=== PATIENT | female | born 1970 | race Caucasian/White ===

== ENCOUNTER 2016-04-28 14:07 | Inpatient (IN) ==
--- NOTE | 2016-04-28 18:20 | Emergency Department Note ---
Disposition Clinical Impression: Vertebral compression fracture Disposition: Admitted As Inpatient Condition: Fair General Adult HPI - General Chief complaint: ED Back Pain/Injury Stated complaint: Fall - Back Pain Time Seen by Provider: 04/28/16 18:11 Source: patient Limitations: no limitations - History of Present Illness Pain Scale: 8 - Related Data Home Medications Medication Instructions Recorded Confirmed Amlodipine [Norvasc] 5 mg PO DAILY 04/29/16 04/29/16 Atenolol [Tenormin] 50 mg PO BID 04/29/16 04/29/16 Cyclobenzaprine [Flexeril] 10 mg PO TID 04/29/16 04/29/16 Gabapentin [Gabapentin] 900 mg PO QID 04/29/16 04/29/16 Ibuprofen [Ibuprofen] 800 mg PO TID 04/29/16 04/29/16 Methadone 25 mg PO TID 04/29/16 04/29/16 Oxycodone HCl 10 mg PO HS 04/29/16 04/29/16 Temazepam [Restoril] 30 mg PO HS 04/29/16 04/29/16 Allergies Allergy/AdvReac Type Severity Reaction Status Date / Time azithromycin Allergy Hives Verified 04/28/16 19:05 celecoxib [From Celebrex] Allergy Hypertensio Verified 04/28/16 19:05 n Past Medical History - Past Medical History Medical history: Reports: hypertension, other Psychiatric history: Reports: no psych history - Social History Smoking Status: Current every day smoker Smokeless Tobacco Status: No Alcohol use: Reports: none Drug use: Reports: none Physical Exam - General Limitations: no limitations General appearance: alert Course Vital Signs Temperature 98.5 F 04/28/16 15:05 Pulse Rate 92 04/28/16 15:05 Respiratory Rate 18 04/28/16 15:05 Blood Pressure 128/85 04/28/16 15:05 O2 Sat by Pulse Oximetry 88 L 04/28/16 15:05 Temperature 97.5 F L 05/02/16 10:53 Pulse Rate 75 05/02/16 10:53 Respiratory Rate 14 05/02/16 10:53 Blood Pressure 124/75 05/02/16 10:53 O2 Sat by Pulse Oximetry 94 L 05/02/16 10:53 Oxygen Delivery Oxygen Delivery Nasal Cannula Medical Decision Making - Lab Data Result diagrams: 05/02/16 05:20 05/02/16 05:20 Lab Results 04/29/16 04/29/16 04/29/16 Range/Units 00:46 01:19 01:19 WBC 6.0 (4.3-11.1) K/mcL RBC 3.01 L (3.82-4.97) M/mcL Hgb 10.0 L (11.5-15.4) g/dL Hct 30.7 L (35.3-44.9) % MCV 102.0 H (83.0-100.0) fL MCH 33.2 (28.0-33.3) pg MCHC 32.6 (31.6-35.5) g/dL RDW 14.0 (11.5-14.5) % Plt Count 192 (140-400) K/mcL MPV 9.9 (9.4-12.4) fL Immature Gran % 0.5 (0-4) % Seg Neutrophils % 79.6 % Lymphocytes % 13.5 % Monocytes % 4.2 % Eosinophils % 2.0 % Basophils % 0.2 % Neutrophils # 4.8 (1.6-8.9) K/mcL Lymphocytes # 0.8 (0.6-4.6) K/mcL Monocytes # 0.3 (0.0-1.3) K/mcL Eosinophils # 0.1 (0.0-0.6) K/mcL Basophils # 0.0 (0.0-0.2) K/mcL Immature Plt Fraction 3.1 (1.1-6.1) % ABG pH 7.36 (7.32-7.45) pH Units ABG pCO2 67 H (35-45) mmHg ABG pO2 103 (85-104) mmHg ABG HCO3 37.9 H (21-27) mEQ/L ABG Total CO2 40.0 H (20-26) mEq/L ABG O2 Saturation 98 (95-98) % ABG Base Excess 10.5 H (-2.0 to 3.0) mEq/L Blood Gas Modality nc Inspired O2 44 % Sodium 143 (136-145) mEq/L Potassium 2.4 L* (3.5-4.5) mEq/L Chloride 101 (98-109) mEq/L Carbon Dioxide 29 (19-29) mEq/L BUN 11 (7-20) mg/dL Creatinine 0.85 (0.57-1.11) mg/dL Est GFR ( Amer) > 60 (> 60) Est GFR (Non-Af Amer) > 60 (> 60) BUN/Creatinine Ratio 13 (6-26) Glucose 125 H (70-99) mg/dL Calculated Osmolality 297 (280-300) Calcium 8.5 L (8.6-10.8) mg/dL Ionized Calcium (1.15-1.35) mmol/L Phosphorus (2.3-4.7) mg/dL Magnesium (1.6-2.6) mg/dL Total Bilirubin 0.4 (0.2-1.2) mg/dL AST 26 (5-34) Units/L ALT 15 (0-55) Units/L Alkaline Phosphatase 121 (38-126) Units/L Serum Total Protein 6.8 (6.0-8.3) g/dL Albumin 2.6 L (3.5-5.0) g/dL Globulin 4.2 H (2.4-3.5) g/dL Albumin/Globulin Ratio 0.6 L (1.1-2.2) 25-OH Vitamin D Total (30-80) ng/mL TSH (0.350-4.840) mcIU/mL 04/29/16 04/29/16 04/29/16 Range/Units 01:19 01:19 01:19 WBC (4.3-11.1) K/mcL RBC (3.82-4.97) M/mcL Hgb (11.5-15.4) g/dL Hct (35.3-44.9) % MCV (83.0-100.0) fL MCH (28.0-33.3) pg MCHC (31.6-35.5) g/dL RDW (11.5-14.5) % Plt Count (140-400) K/mcL MPV (9.4-12.4) fL Immature Gran % (0-4) % Seg Neutrophils % % Lymphocytes % % Monocytes % % Eosinophils % % Basophils % % Neutrophils # (1.6-8.9) K/mcL Lymphocytes # (0.6-4.6) K/mcL Monocytes # (0.0-1.3) K/mcL Eosinophils # (0.0-0.6) K/mcL Basophils # (0.0-0.2) K/mcL Immature Plt Fraction (1.1-6.1) % ABG pH (7.32-7.45) pH Units ABG pCO2 (35-45) mmHg ABG pO2 (85-104) mmHg ABG HCO3 (21-27) mEQ/L ABG Total CO2 (20-26) mEq/L ABG O2 Saturation (95-98) % ABG Base Excess (-2.0 to 3.0) mEq/L Blood Gas Modality Inspired O2 % Sodium (136-145) mEq/L Potassium (3.5-4.5) mEq/L Chloride (98-109) mEq/L Carbon Dioxide (19-29) mEq/L BUN (7-20) mg/dL Creatinine (0.57-1.11) mg/dL Est GFR ( Amer) (> 60) Est GFR (Non-Af Amer) (> 60) BUN/Creatinine Ratio (6-26) Glucose (70-99) mg/dL Calculated Osmolality (280-300) Calcium 8.7 (8.6-10.8) mg/dL Ionized Calcium 1.12 L (1.15-1.35) mmol/L Phosphorus 3.6 (2.3-4.7) mg/dL Magnesium 2.0 (1.6-2.6) mg/dL Total Bilirubin (0.2-1.2) mg/dL AST (5-34) Units/L ALT (0-55) Units/L Alkaline Phosphatase (38-126) Units/L Serum Total Protein (6.0-8.3) g/dL Albumin (3.5-5.0) g/dL Globulin (2.4-3.5) g/dL Albumin/Globulin Ratio (1.1-2.2) 25-OH Vitamin D Total 8 L (30-80) ng/mL TSH 2.146 (0.350-4.840) mcIU/mL Attestation Statement - Attestation Attestation: I examined this patient and my medical decision-making was reviewed with the PROCESS PUMPER/PA/Advanced Practice Nurse/Resident Physician. I agree with the documented findings, disposition and treatment plan as described except to the extent set forth below. [id number] time provided Patient sustained a fall. She complains of lower back pain. She states she has a history of chronic back pain and previously a kyphoplasty was advised by her insurance denied this. The patient has an obvious kyphotic posture on exam
[2016-04-28] MEDS ORDERED: *HR* HYDROmorphone (PF) 1 MG/ML SYRINGE IV ONE (18:28)
[2016-04-28] MEDS ORDERED: Ondansetron 4 MG/2 ML VIAL IVP ONE (18:29)
--- NOTE | 2016-04-28 18:34 | Emergency Department Note ---
Disposition Clinical Impression: Vertebral compression fracture Qualifiers: Encounter type: initial encounter Qualified Code(s): M48.50XA - Collapsed vertebra, not elsewhere classified, site unspecified, initial encounter for fracture Disposition: Admitted As Inpatient Condition: Fair General Adult HPI - General Chief complaint: ED Back Pain/Injury Stated complaint: Fall - Back Pain Time Seen by Provider: 04/28/16 18:11 Source: patient Limitations: no limitations Nursing Notes Reviewed: Yes Vital Signs Reviewed: Yes - History of Present Illness HPI Narrative: Patient is here for evaluation of back pain. Patient had a fall approximately 1 month ago and was diagnosed with a compression fracture in thoracic spine. Her primary care physician has been taking care of her and have recommended kyphoplasty which insurance did not approve. Since this time the patient has had multiple other falls the most recent of which she says was 2 days ago but cannot remember the details. Patient has had a history of back pain in the corresponding thoracic region that radiates around to the front and down into the lumbar spine with radiation or radicular symptoms along the right leg into the knee. The patient states that yesterday she was trying to use a restroom was unable to urinate. Patient has had urinary incontinence 2 over the last day. Patient has had fecal incontinence but states that this is normal for her secondary to her heart Hirschsprung's disease. Pain Scale: 8 - Related Data Home Medications Medication Instructions Recorded Confirmed Unable To Obtain [Unable to Obtain] 04/28/16 04/28/16 Allergies Allergy/AdvReac Type Severity Reaction Status Date / Time azithromycin Allergy Hives Verified 04/28/16 19:05 celecoxib [From Celebrex] Allergy Hypertensio Verified 04/28/16 19:05 n All systems ED: reviewed and negative except as stated. Constitutional: Denies: fever, chills Cardiovascular: Denies: chest pain Respiratory: Denies: cough, dyspnea Gastrointestinal: Denies: abdominal pain, nausea, vomiting Genitourinary: Reports: other (inability to void x2 - intermittent) Past Medical History - Past Medical History Medical history: Reports: hypertension, other Psychiatric history: Reports: no psych history - Social History Smoking Status: Current every day smoker Smokeless Tobacco Status: No Alcohol use: Reports: none Drug use: Reports: none Physical Exam Back pain with tenderness to thoracic tenderness in the corresponding region of previous compression fracture. Tendernes to the lower back throughout. Not worse midline or paraspinal. - General Limitations: no limitations General appearance: alert - Head Head exam: atraumatic, normocephalic - Eye Eye exam: Present: normal appearance - ENT ENT exam: normal exam, normal oropharynx - Neck Neck exam: Present: normal inspection - Chest Chest inspection: Present: normal inspection, symmetric chest wall rise. Absent : tenderness - Respiratory Respiratory exam: Present: normal lung sounds bilaterally. Absent: respiratory distress, wheezes - Cardiovascular Cardiovascular exam: Present: regular rate, normal rhythm - Abdominal Exam Abdominal exam: Present: soft, Non-Tender - Extremities Exam Extremities exam: Present: normal inspection. Absent: tenderness, pedal edema - Neurological Exam Neurological exam: Present: alert, oriented X3 - Expanded Neurological Exam Patient oriented to: Present: person, place, time Speech: Present: fluid speech Cranial nerves: EOM function (II, III, IV, ): Normal, facial sensation (V): Normal, facial palsy (VII): Normal, gag reflex (IX): Normal, spinal accessory function (XI): Normal, tongue deviation (XII): Normal Cerebellar function: finger to nose: Normal Motor strength - LUE: 5/5 Motor strength - RUE: 5/5 Motor strength - LLE: 5/5 Motor strength - RLE: 5/5 Sensory exam upper extremity: light touch: Normal Sensory exam lower extremity: light touch: Normal Coma Scale Eye Opening: Spontaneous Coma Scale Motor Response: Obeys Commands Coma Scale Verbal Response: Oriented Coma Scale Total: 15 - Psychiatric Psychiatric exam: Present: normal affect, normal mood - Skin Skin exam: Present: warm, dry, intact Course Course Narrative: Patient has history of fall 2-3 weeks ago with worsening balance and 2 episodes of being unable to urinate with some urinary leakage sometime later. Patient currently able to urinate without difficulty. However, due to the concerning nature of the history we will get an MRI of the thoracic and lumbar spine. - Reevaluation(s) Reevaluation #1: Patient complaining of significant pain and requesting pain medication. Patient states she takes methadone by her primary care physician for chronic back pain does not seem to back pain specialist. Patient also has significant anxiety and is requesting for anxiolysis in order to get the MRI. Reevaluation #2: Patient tolerated MRI well but is difficult to arouse. Patient with good respiratory effort however upon trying to discharge she is not arousing well enough to give instructions. 0.2 mg of Narcan given. Reevaluation #3: Radiologist called for an addendum to previous radiographic read. Patient has multiple levels of fractures including the thoracic lumbar and sacral regions. Patient will be admitted for further evaluation and possible neuro surgery consult. - Consultations Consultation #1: Discussed with Dr. Henderson. Patient accepted for admission. Vital Signs Temperature 98.5 F 04/28/16 15:05 Pulse Rate 92 04/28/16 15:05 Respiratory Rate 18 04/28/16 15:05 Blood Pressure 128/85 04/28/16 15:05 O2 Sat by Pulse Oximetry 88 L 04/28/16 15:05 Temperature 98.8 F 04/29/16 00:05 Pulse Rate 66 04/29/16 00:05 Respiratory Rate 15 04/29/16 00:05 Blood Pressure 93/54 04/29/16 00:05 O2 Sat by Pulse Oximetry 97 04/29/16 00:05 Oxygen Delivery Oxygen Delivery Nasal Cannula
[2016-04-28] MEDS ORDERED: *HR* LORazepam 2 MG/ML VIAL IVP ONE (19:45)
[2016-04-28] MEDS ORDERED: *HR* LORazepam 2 MG/ML VIAL ONE (19:46)
[2016-04-28] MEDS ORDERED: Naloxone 0.4 MG/ML INJ IVP ONE (22:32)
[2016-04-29] MEDS ORDERED: Dexamethasone 4 MG/ML VIAL IVP ONE (00:01)
[2016-04-29] MEDS ORDERED: Ipratropium/Albuterol Neb 3 ML IH PRN (00:01)
--- NOTE | 2016-04-29 00:15 | Internal Med History&Physical ---
Date of Encounter: 04/29/16 Time of Encounter: 00:12 Assessment and Plan (1) Vertebral compression fracture Current visit: Yes Status: Acute Patient presented with back pain and reports of incontinence. Thoracic MRI showed 1) acute-subactue T5 & T7 vertebral body compression fractures with mild anterior vertebral body height loss, 2) inferior T4 &T6 and superior T8 endplate contusions, 3) no hematoma or evidence of spinal cord injury. Lumbar MRI showed 1) subacute L1 compression fracture with mild anterior vertebral body height loss, 2) L2 superior enplate contusion, 3) mild L4-5 DDD with disc buldging causeing mild spinal stenosis, 4) abnormal T1 & T2 and left & right sacral ala changes concerning for acute insufficiency fractures. 1. MRI cervical spine - with all of the other spinal changes and falls, believe MRI cervical spine would be indicated 2. Consult to Dr. Meza, spine surgery, for evaluation 3. Evaluation for underlying cause of fractures - will order Ca, Mg, Phos, Thyroid cascade and 25 D Hydroxy 4. Decadron 10mg IV due to concern for incontinence 5. Pain control - will hold at this time due to patient's decreased responsiveness 6. PT/OT consult Qualifiers: Encounter type: initial encounter Qualified Code(s): M48.50XA - Collapsed vertebra, not elsewhere classified, site unspecified, initial encounter for fracture (2) Multiple falls Current visit: Yes Status: Acute Patient reports multiple falls. Unable to evaluate situation surrounding these falls as patient is unable to answer questions at this time. Will have to evaluate for causes of falls. Will also consult PT/OT 1. Further discussion into causes of falls 2. PT/OT consult (3) Increased oxygen demand Current visit: Yes Status: Acute Patient requiring supplemental oxygen here in the hospital. She reports that she does not require oxygen at home. She smokes but states that she has never been told she has COPD before. On exam, patient has diminished breath sounds and fine wheezing on the left. Will get a CXR and because of the wheezing will order duonebs. Due to patient's decreased responsiveness, will get an ABG as well. Patient may require BiPAP if she is retaining CO2. 1. CXR 2. ABG 3. Continuous O2 monitoring and supplemental O2 as needed 4. Duoneb breathing treatments (4) Decreased responsiveness Current visit: Yes Status: Acute Patient with decreased responsiveness after recieving 1mg dilaudid and 1mg ativan. Improved somewhat after recieving narcan. On exam, patient is arousable and is protecting her airway. This decreased responsiveness is due in part to medication however with recent falls we will do a head CT to rule out any bleed and get an ABG to assess oxygenation. Will monitor neuro status. 1. Monitor neuro status 2. Head CT 3. ABG 4. Cardiac monitoring (5) Hirschsprung's disease Current visit: Yes Status: Acute (6) DVT prophylaxis Current visit: Yes Status: Acute Heparin for DVT prophylaxis. Internal Medicine - H&P: HPI Chief complaint: Back Pain Admitted From: Emergency Dept History of present illness: Ms. Toth is a 45 year old female with PMH including hypertension, Hirshsprung' s Disease, and current tobacco use who presented to the ED with back pain. At the time of this exam, patient is extremely groggy. She was arrousable and is protecting her airway however is unable to answer many questions and frequently states "I don't know." Majority of history and review of symptoms obtained from ED note and ED physicians. Patient presents to the ED with complaint of thoracic back pain. Per ED note, patient feel approximately 1 month ago. At that time she was diagnosed with a T7 compression fracture. Kyphoplasty was recommended but denied by insurance. She was being managed by a primary care provider. She reports to talking Methadone daily for her pain. Per ED note, the thoracic pain radiates around to the front and down the lumbar spin into her right knee. Patient reported increased difficulty ambulating with worsening stability Patient reported associated urine loss x2 over the last 2 days - patient tried to go to the bathroom and was unable to go. She then had small leakage of urine and then was able to go back and go to the bathroom. She has also had fecal incontinence but this is normal for her secondary to Hirschsprung's disease. In the ED, patient was afebrile. Blood pressure, heart rate and respiratory rate all within normal limits. O2 saturation on admission was 88% and she is currently requiring around 6L supplemental oxygen to maintain her O2 sat. Patient was given dilaudid and ativan due to anxiety and pain. MRI thoracic and lumbar spines were done because of the concern for urinary incontinence and the falls. This showed multiple contusions, compression fractures and changes concerning for acute insufficiency fractures. On return from CT, patient was unarrousable and nonresponsive. She was then given 0.4mg of Narcan with improvement. On exam, patient was difficulty to awake. She would eventually open her eyes and she was moving all extremities. She attempted to stay awake while I asked the patient questions however she kept falling asleep and was unable to answer many questions. She reported her only hisotry of Hirshsprungs. She denied any history of COPD or CHF. Initially she did not know why she came to the ED. When asked if it was for back pain she said yes. She says she urinated as normal today. Lungs were diminished bilaterally with fine wheezing on the left. Patient is able to state that she does not use oxygen at home. Heart regular rate and rhythm. She is moving all extremities on her own. She reports that sensation is grossly intact. Physical exam limited due to patients willingness to cooperate. Past Med Surg Social Fam HX - Past Medical History Medical history: hypertension, other Psychiatric history: no psych history - Social History Smoking Status: Current every day smoker Smokeless Tobacco Status: No Alcohol use: none Drug use: none Internal Medicine - H&P: Meds Unable To Obtain [Unable to Obtain] 04/28/16 [History] Allergies azithromycin Allergy (Verified 04/28/16 19:05) Hives celecoxib [From Celebrex] Allergy (Verified 04/28/16 19:05) Hypertension ROS unobtainable: due to mental status All Systems PM: A 10-system review of systems was performed and is negative for pertinent findings except as documented above in the HPI. - Constitutional Constitutional: falls - Genitourinary Genitourinary: difficulty urinating, difficulty voiding, urinary hesitancy, urinary incontinence - Musculoskeletal Musculoskeletal ROS IM: back pain - Constitutional Vitals: Temp Pulse Resp BP Pulse Ox 98.8 F 66 15 93/54 97 04/29/16 00:05 04/29/16 00:05 04/29/16 00:05 04/29/16 00:05 04/29/16 00:05 General appearance: Present: A&O X 2, no acute distress - Head Head exam: Present: atraumatic, normal inspection, normocephalic - Eye Eye exam: Present: normal appearance - Respiratory Respiratory exam: Present: decreased breath sounds, wheezes. Absent: rales, respiratory distress, rhonchi - Cardiovascular Cardiovascular exam: Present: RRR - GI/Abdominal GI/Abdominal exam: Present: soft. Absent: tenderness - Extremities Exam Extremities exam: Present: normal inspection. Absent: pedal edema - Expanded Neurological Exam Neurological exam expanded: Present: protecting the airway Patient oriented to: Present: person, place Speech: Present: fluid speech Sensory exam: lower extremity light touch: Normal, upper extremity light touch: Normal Coma Scale Eye Opening: To Voice Coma Scale Motor Response: Obeys Commands Coma Scale Verbal Response: Oriented Coma Scale Total: 14
[2016-04-29] MEDS: 0.9 % Sodium Chloride 1,000 ML IVC SCH (00:37)
[2016-04-29 00:57] LABS: ABG Base Excess 10.5 mEq/L (-2.0 to 3.0); ABG HCO3 37.9 mEQ/L (21-27); ABG Oxygen Saturation 98 % (95-98); ABG PCO2 67 mmHg (35-45); ABG PH 7.36 pH Units (7.32-7.45); ABG PO2 103 mmHg (85-104)
[2016-04-29 00:58] LABS: Blood Gas FiO2 44 %
[2016-04-29 01:39] LABS: Basophils % 0.2 %; Eosinophils # 0.1 K/mcL (0.0-0.6); Hematocrit 30.7 % (35.3-44.9); Immature Granulocytes % 0.5 % (0-4); Immature Platelets 3.1 % (1.1-6.1); Lymphocytes # 0.8 K/mcL (0.6-4.6); Lymphocytes % 13.5 %; Mean Corpuscular HGB Conc 32.6 g/dL (31.6-35.5); Mean Corpuscular Hemoglobin 33.2 pg (28.0-33.3); Mean Platelet Volume 9.9 fL (9.4-12.4); Monocytes # 0.3 K/mcL (0.0-1.3); Monocytes % 4.2 %; Neutrophils # 4.8 K/mcL (1.6-8.9); Platelet Count 192 K/mcL (140-400); Red Blood Count 3.01 M/mcL (3.82-4.97); Segmented Neutrophils % 79.6 %
[2016-04-29] MEDS ORDERED: 0.9 % Sodium Chloride 1,000 ML IVC ONE ×2 (01:44→03:00)
[2016-04-29 01:46] LABS: Ionized Calcium 1.12 mmol/L (1.15-1.35)
[2016-04-29 01:51] LABS: Calcium 8.7 mg/dL (8.6-10.8); Phosphorous 3.6 mg/dL (2.3-4.7)
[2016-04-29 01:53] LABS: Alanine Aminotransferase 15 Units/L (0-55); Albumin 2.6 g/dL (3.5-5.0); Albumin/Globulin Ratio 0.6 (1.1-2.2); Alkaline Phosphatase 121 Units/L (38-126); Aspartate Amino Transferase 26 Units/L (5-34); BUN/Creatinine Ratio 13 (6-26); Bilirubin,Total 0.4 mg/dL (0.2-1.2); Blood Urea Nitrogen 11 mg/dL (7-20); Calcium 8.5 mg/dL (8.6-10.8); Carbon Dioxide 29 mEq/L (19-29); Chloride 101 mEq/L (98-109); Globulin 4.2 g/dL (2.4-3.5); Glucose 125 mg/dL (70-99); Osmolality,Calculated 297 (280-300); Sodium 143 mEq/L (136-145); Total Protein 6.8 g/dL (6.0-8.3); eGFR For African Americans > 60 (> 60); eGFR For Non-African Americans > 60 (> 60)
[2016-04-29 01:57] LABS: Potassium 2.4 mEq/L (3.5-4.5)
--- NOTE | 2016-04-29 03:23 | Event Note ---
Date of Encounter: 04/29/16 Time of Encounter: 03:17 Patients seen and examined with the medical residents. Briefly patient presents with back pain. She has been having recurrent falls over the past 3 weeks. Suspect that the patient is falling due to excessive pain/sedating medications. Patient takes two and a half pills of methadone 3 times a day, in addition to oxycodone 10 mg daily in addition to Flexeril. Patient the sleepy during my interview. Patient mentioned recent symptoms of urinary incontinence and therefore MRI of the thoracic and lumbar spine was performed in the emergency room and showed no evidence of cord pathology. A blood gas showed elevation of CO2 however is compensated. Will get CT scan of the head, MRI of the cervical spine. Patient was found to have left sided pneumonia and so she will be started on Levaquin 750 mg daily. When old pain medications for now. Neurosurgery consultation in the morning. She is hypokalemia can this will be replaced traditional medicines for hypertension and I suspect she may be diuretic.
[2016-04-29] MEDS: *HR* Heparin 5,000 UNIT/ML VIAL SQ SCH ×3 (06:37→22:03)
[2016-04-29] MEDS: Famotidine 20 MG/2 ML VIAL IVP SCH ×2 (06:40→17:08)
--- NOTE | 2016-04-29 09:15 | Internal Med Progress Note ---
<Sol Infantemadeleine - Last Filed: 04/29/16 15:42> Date of Encounter: 04/29/16 Time of Encounter: 09:04 - Assessment and plan (1) Vertebral compression fracture Current Visit: Yes Status: Acute Assessment and plan: Patient presenting with worsening back pain. Known fall 3 weeks ago and dx of T7 compression Fracture. Patient does not remember if she fell again at home or had any traumatic injury. 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 Denies saddle anesthesia. On exam muscle strength decreased b/l hip abduction possibly secondary to pain vs spinal canal narrowing. Reflexes 2-3/4 right Achilles, 2/4 L achilles and bilateral patellar. Sensation intact b/l upper and lower extremity. MRI today T/L spine showing acute vs subacute t5 and t7 compression fracture, contusions to T4,T6,T8 , L2, subacute L1 compression fx, and degenerative changes lumbar spine L4-5 with disc bulge and mild canal narrowing. Plan: -Dr. Sher consulted, appreciate further recommendations -Will check for secondary causes of osteoporosis (Ca, Mg, Phosphate, TSH, VitD, PTH) -PT/OT consulted -Resumed patient's home dose of oxycodone PRN, with Morphine IV for severe pain. -Will check labs tomorrow for secdonary causes of fracture: phosphorous, PTH, -Patient found to have severely low levels of Vitamin D. -Continue with supplemental calcium carbonate and Vitamin D. 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 -Will review OARRS -C spine MRI pending. -COnsult to PT/OT. Qualifiers: Encounter type: initial encounter Qualified Code(s): M48.50XA - Collapsed vertebra, not elsewhere classified, site unspecified, initial encounter for fracture (2) Hypokalemia Current Visit: Yes Status: Acute Assessment and plan: potassium upon admission was 2.4 Have replaced, will re check tomorrow along with magnesium levels. (3) Pneumonia Current Visit: Yes Status: Acute Assessment and plan: CXR showed increased opacities in the central left lung. Continue Levaquin, Day 1. DuoNeb PRN Qualifiers: Pneumonia type: due to unspecified organism Laterality: unspecified laterality Lung location: unspecified part of lung Qualified Code(s): J18.9 - Pneumonia, unspecified organism (4) Hypertension Current Visit: Yes Status: Acute Assessment and plan: Holding blood pressure meds at this time due to hypotension. Will possibly resume tomorrow after re evaluation. Qualifiers: Hypertension type: essential hypertension Qualified Code(s): I10 - Essential (primary) hypertension (5) Multiple falls Current Visit: Yes Status: Acute Assessment and plan: Patient states that she feels safe at home. She denies any sort of abusive relationship with her . Etiology unclear at this time. PT/OT (6) Decreased responsiveness Current Visit: Yes Status: Acute Assessment and plan: Upon admission, patient was hard to arouse after receiving ativan and dilaudid. SHe received Narcan with minimal improvement. Head CT showed no acute intracranial abnormality. ABG showed normal pH, elevated CO2. Today, patient is alert and oriented x3, mentating normally. COntinue to monitor. Resumed home dose of oxycodone PRN with IV morphine Q6 for severe pain. (7) Hirschsprung's disease Current Visit: Yes Status: Acute (8) DVT prophylaxis Current Visit: Yes Status: Acute Assessment and plan: Heparin SQ - Subjective Interval history: 45 year-old female examined at bedside. Reports she is having a significant amount of back pain and back spasms (Thoracic and Lumbar). She has had chronic back pain since 1994 when she had a ground level fall while working in a [place] [facility] [place]. She was also dx with a herniated disc in her lumbar spine but cannot remember when this was. Since this time she has had subjective weakness as well as numbness/tingling radiating down her right lateral leg stopping at the knee. She reports she has been on methadone Rx by PCP 15mg 3x/day since 1994 for her pain. She also takes cyclobenzaprine 20mg 3x/day given to her by PCP. She reports a fall 3 weeks ago secondary to uneven monisha in her home. She was seen by her PCP and was dx with T7 compression fx. Kyphoplasty was recommended but was denied by insurance. Since this time patient reports she is unsure if she fell again or not. She denies feeling tired/groggy frequently at home. She reports a many year history of urinary hesitation and trouble initiating flow. Looking at old records it appears she has had vaginal wall prolapse with surgical repair as well as a pessary placement in 2013. Patient also reports she has had a worsening cough x3 weeks but is unsure if she is coughing anything up or not. She denies fever, chills, night sweats, sore throat , wheezing, n/v, abdominal pain, diarrhea. She is a 1pk/day smoker, does not drink alcohol. 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 - Constitutional Vitals: Temp Pulse Resp BP Pulse Ox 98.3 F 67 18 116/77 96 04/29/16 06:55 04/29/16 06:55 04/29/16 06:55 04/29/16 06:55 04/29/16 06:55 General appearance: Present: A&O X 3, no acute distress, obese, answers questions appropriately Exam: Patient is groggy but answers questions appropriately and is in NAD. - Head Head exam: Present: atraumatic, normocephalic Additional comments: No pain with palpation of cervical spine. - Eye Eye exam: Present: EOMI, PERRL. Absent: scleral icterus Pupils: Present: normal accommodation - ENT ENT exam: Present: mucous membranes dry - Neck Neck exam general surgery: Present: normal inspection, trachea midline. Absent : lymphadenopathy - Respiratory Respiratory exam: Present: rales (left lung base), wheezes (scattered b/l). Absent: accessory muscle use, respiratory distress, rhonchi Additional comments: Patient is on 6L by nasal canula. No excessory muscle use. NAD. - Cardiovascular Cardiovascular exam: Present: RRR, +S1, +S2. Absent: diastolic murmur, systolic murmur - GI/Abdominal GI/Abdominal exam: Present: normal bowel sounds, soft, no peritoneal signs. Absent: distended, tenderness - Extremities Exam Extremities exam: Present: normal capillary refill. Absent: calf tenderness, pedal edema - Back Exam Back exam: Present: paraspinal tenderness (lumbar spine), vertebral tenderness ( tender to palpation t7/t12) - Neurological Exam Neurological exam: Present: alert, CN II-XII intact, oriented X3, no focal deficits Additional comments: 5/5 strength with shoulder abduction, elbow flexion/extension, abduction of fingers, attendant arcade strength 4/5 strength with bilateral hip abduction likely secondary to low back pain, 5/ 5 strength with bilateral knee extension/flexion, dorsiflexion/plantarflexion, EHL Sensation intact b/l UE and LE Patellar reflexes 2/4 b/l Achilles reflexes 2-3/4 right, 2/4 left - Psychiatric Psychiatric exam: Absent: agitated, anxious - Skin Skin exam: Present: abrasion (b/l lower shins ) Internal Medicine: Result - Labs CBC & Chem 7: 04/29/16 01:19 04/29/16 11:14 - ABG Interpretation ABG results: ABG ABG pH 7.36 pH Units (7.32-7.45) 04/29/16 00:46 ABG pCO2 67 mmHg (35-45) H 04/29/16 00:46 ABG pO2 103 mmHg (85-104) 04/29/16 00:46 ABG O2 Saturation 98 % (95-98) 04/29/16 00:46 - Impressions Lumbar Spine MRI 04/28/16 18:25 IMPRESSION: 1. Subacute L1 compression fracture with mild anterior vertebral body height loss and superior endplate concavity. No associated posterior cortex retropulsion. 2. L2 superior endplate contusion without definite fracture. 3. No evidence ligamentous injury or hematoma within the spinal canal. 4. Mild L4-5 degenerative disc disease with disc bulge causing mild spinal canal stenosis. D/ / Dillon Robles MD / Dillon Robles MD Interpreting Provider: Dillon Robles MD Thoracic Spine MRI 04/28/16 18:25 IMPRESSION: 1. Acute to subacute T5 and T7 vertebral body compression fractures with mild anterior vertebral body height loss. No associated posterior cortex retropulsion. 2. Inferior T4 and T6 and superior T8 endplate contusions. 3. No hematoma within the spinal canal or evidence of spinal cord injury. D/ / Dillon Robles MD / Dillon Robles MD Interpreting Provider: Dillon Robles MD Chest X-Ray 04/29/16 00:18 IMPRESSION: 1. Airspace disease in the central left lung likely represents pneumonia. Follow-up to resolution is recommended. 2. Right pleural effusion versus pleural scarring. D/ / Ronald Dallas MD / Ronald Dallas MD Interpreting Provider: Ronald Dallas MD Head CT 04/29/16 06:10 IMPRESSION: No acute intracranial abnormality. D/ / Ford Zarate MD / Ford Zarate MD Interpreting Provider: Ford Zarate MD Consult Discharge Plan - Plan Referrals: Mark Mauro [Primary Care Provider] - <Jono Martinez - Last Filed: 04/29/16 17:42> - Constitutional Vitals: Temp Pulse Resp BP Pulse Ox 97.6 F 79 16 103/67 94 L 04/29/16 16:25 04/29/16 16:25 04/29/16 16:25 04/29/16 16:25 04/29/16 16:25 Internal Medicine: Result - Labs CBC & Chem 7: 04/29/16 01:19 04/29/16 11:14 Labs: BMP 04/29/16 11:14 Sodium 142 Potassium 3.2 L Chloride 105 Carbon Dioxide 28 BUN 11 Creatinine 0.66 Glucose 149 H Calcium 7.9 L Urine 04/29/16 Range/Units 16:54 Urine Color Yellow (Yellow) Urine Clarity Clear (Clear) Urine pH 6.5 (5.0-8.0) pH Units Ur Specific [place] 1.021 (1.010-1.025) Urine Protein 30 H (Neg-Trace) mg/dL Urine Glucose (UA) Normal (Normal) mg/dL - ABG Interpretation ABG results: ABG ABG pH 7.36 pH Units (7.32-7.45) 04/29/16 00:46 ABG pCO2 67 mmHg (35-45) H 04/29/16 00:46 ABG pO2 103 mmHg (85-104) 04/29/16 00:46 ABG O2 Saturation 98 % (95-98) 04/29/16 00:46 - Attending Attestation I examined this patient and my medical decision-making was reviewed with the [employer]CR[employer]ER/PA/Advanced Practice Nurse/Resident Physician. I agree with the documented findings, disposition and treatment plan as described except to the extent set forth below Seen at bedside with residents and medical students 45 year old female with PMH including hypertension, Hirshsprung's Disease, and current tobacco use She is awake and alert at time of review and is able to make a good communication She endorses a hx of BLANCA/JOAQUINA in her early twenties and some HRT shortly after which she stopped by herself She has been having recurrent falls for >3 months, most recent one 5 days ago She is admitted for pneumonia and Multiple level thoracic compression fractures Pain control attending documentation noted, recs appreciated Utox ordered all day, RN to straight cath C-Spine MRI could not be done, patient refused due to pain She possibly has OHS and desaturates when asleep PT/OT eval is pending, discharge dispo will be to SNF/rehab Check Vit D level, PTH, start empiric ca/Vit D replacement. TSH is WNL Aggressive potassium replacement, repeat Chem p.m and monitor closely Needs DEXA as out-patient, may benefit from Osteoporosis treatment Tylenol prn for now, till patient is awake enough to be given opiates Continue Levaquin for PNA and O2 supplementation. Head CT is negative Patient is high risk due to waxing and waning mental status and use of IV opiates
[2016-04-29] MEDS ORDERED: Calcium Gluconate 1,000 MG in D5% in Water 100 ML IVPB ONE (10:27)
[2016-04-29] MEDS: Levofloxacin 750 MG/150 ML 750 MG/150 ML BAG IVPB SCH (10:43)
[2016-04-29] MEDS: Cholecalciferol (D-3) 1,000 UNIT TABLET PO SCH (10:54)
--- NOTE | 2016-04-29 12:23 | Pain Management Consultation ---
Date of Encounter: 04/29/16 Time of Encounter: 11:55 Assessment and Plan (1) Vertebral fx NOS-closed Current Visit: Yes Status: Acute The assessment and plan as outlined above was discussed with the patient and/or family members who expressed understanding and agreement. All questions were answered. Cross - cover today for [facility] fracture consults in place of Dr Grey. The patient was seen and evaluated at bedside today. My recommendations are as follows: 1. The patient has no documented history of osteoporosis or cancer, and in combination with a clear history of falls, these fractures are traumatic in nature. Therefore at this time, with proper pain control and rehabilitation I expect these fractures to resolve themselves. Kyphoplasty and/or vertebroplasty is not generally indicated for traumatic fractures. I would recommend placing the patient back on her home pain medication dose equivalent with an increase to account for the new/acute pain. 2. The presence of an active pneumonia indicates the patient is not an elective surgical candidate at this time. 3. I would recommend placement of this patient in long term for pain control and rehabilitation. I also recommend a TLSO brace for support. Qualifiers: Encounter type: initial encounter Fracture of vertebra location: thoracic Thoracic vertebra fracture level: unspecified thoracic vertebra Fracture morphology: other fracture Qualified Code(s): S22.008A - Other fracture of unspecified thoracic vertebra, initial encounter for closed fracture (2) Multiple falls Current Visit: Yes Status: Acute My concern at this time is the repetitive trauma. I feel as though the patient would deal with proper pain control and time but she continues to reinjure herself in the associated healing fractures/bone bruises. A possible explanation for the multiple falls could be medication side effects. While it is not clear that the patient falls are self-induced, gabapentin appears to be a topic of conversation with the patient and her . I would recommend reducing the dose of gabapentin significantly over time. Furthermore both neurological and cardiac workup would be reasonable if not already performed. Also, if not yet performed, would recommend urine toxicology. History of Present Illness Chief complaint: back pain HPI: Ms. Toth is a 45 year old female Patient was admitted overnight secondary to severe back pain. She reports she has had several falls occurring dating back to before last summer. I interviewed the patient together with her . They both report no clear identifying reason for the falls. The suggests the patient falls because of her use of gabapentin. She has had intermittent back pain since last summer progressing to more back pain after the fall 4 days ago. The patient describes the pain as sharp. She locates the pain to the left low back and hip area. Patient states the pain is worse with walking but she is able to walk with assist. The patient states she takes home methadone and gabapentin for back pain dating back to an injury at work. Patient sees Dr Mauro in [place] ([place] The patient often gets out of bed in the middle of the night to go to the bathroom (she has trouble voiding) and she falls. Patients states patient often falls asleep and falls off of the toilet. Reports no weakness in the legs. Past Med Surg Social Fam HX - Past Medical History Medical history: hypertension, other Psychiatric history: no psych history - Social History Smoking Status: Current every day smoker Smokeless Tobacco Status: No Alcohol use: none Drug use: none - Family History Father Hx Family Cardiac Disorders: (OH x2, HTN) Hx Family Endocrine Disorder: (DM) Mother Hx Family Respiratory Disorders: Yes (COPD, emphysema) Medications and Allergies Amlodipine [Norvasc] 5 mg PO DAILY 04/29/16 [History] Atenolol [Tenormin] 50 mg PO BID 04/29/16 [History] Cyclobenzaprine [Flexeril] 10 mg PO TID 04/29/16 [History] Gabapentin [Gabapentin] 900 mg PO QID 04/29/16 [History] Ibuprofen [Ibuprofen] 800 mg PO TID 04/29/16 [History] Methadone 25 mg PO TID 04/29/16 [History] Oxycodone HCl 10 mg PO HS 04/29/16 [History] Temazepam [Restoril] 30 mg PO HS 04/29/16 [History] Allergies azithromycin Allergy (Verified 04/28/16 19:05) Hives celecoxib [From Celebrex] Allergy (Verified 04/28/16 19:05) Hypertension Review of Systems - Constitutional Constitutional ROS IM: daytime sleepiness - Cardiovascular Cardiovascular ROS: no chest pain, no leg edema, no lightheadedness - Respiratory Respiratory: no pain on inspiration, no pain with cough - Gastrointestinal Gastrointestinal: no abdominal pain, no constipation, no diarrhea, no heartburn - Genitourinary Genitourinary ROS: difficulty urinating - Musculoskeletal Musculoskeletal ROS: as per HPI, abnormal gait - Integumentary Integumentary: lesions - Neurological Neurological ROS: abnormal gait - Psychiatric Psychiatric general: no anxiety, no confusion, no depression - Hematologic/Lymphatic Hematologic/Lymphatic pediatric: no easy bleeding, no easy bruising Physical Exam Initial Vital Signs Temp Pulse Resp BP Pulse Ox 98.5 F 92 18 128/85 88 L 04/28/16 15:05 04/28/16 15:05 04/28/16 15:05 04/28/16 15:05 04/28/16 15:05 - General physical appearance General physical appearance: sedated, no distress - Eyes Eye exam: normal ocular movement - Neck trachea midline - Neurologic confused, memory loss - Musculoskeletal Musculoskeletal: other (TTP over the left SI joint. TTP over low lumbar spine. SLR test neg. 5/5 strength. No pain in the left hip with passive ROM exam) - Psychiatric Psychiatric: speech is normal (slow speech, word searching, memory no clearly intact.) Results - Labs 04/29/16 01:19 04/29/16 01:19 Abnormal lab results RBC 3.01 M/mcL (3.82-4.97) L 04/29/16 01:19 Hgb 10.0 g/dL (11.5-15.4) L 04/29/16 01:19 Hct 30.7 % (35.3-44.9) L 04/29/16 01:19 MCV 102.0 fL (83.0-100.0) H 04/29/16 01:19 ABG pCO2 67 mmHg (35-45) H 04/29/16 00:46 ABG HCO3 37.9 mEQ/L (21-27) H 04/29/16 00:46 ABG Total CO2 40.0 mEq/L (20-26) H 04/29/16 00:46 ABG Base Excess 10.5 mEq/L (-2.0 to 3.0) H 04/29/16 00:46 Potassium 2.4 mEq/L (3.5-4.5) L* 04/29/16 01:19 Glucose 125 mg/dL (70-99) H 04/29/16 01:19 Calcium 8.5 mg/dL (8.6-10.8) L 04/29/16 01:19 Ionized Calcium 1.12 mmol/L (1.15-1.35) L 04/29/16 01:19 Albumin 2.6 g/dL (3.5-5.0) L 04/29/16 01:19 Globulin 4.2 g/dL (2.4-3.5) H 04/29/16 01:19 Albumin/Globulin Ratio 0.6 (1.1-2.2) L 04/29/16 01:19 25-OH Vitamin D Total 8 ng/mL (30-80) L 04/29/16 01:19 All other labs normal. - Imaging Additional studies: Reviewed thoracic MRI dates 04/28/2016 : Report is as follows...."IMPRESSION: 1. Acute to subacute T5 and T7 vertebral body compression fractures with mild anterior vertebral body height loss. No associated posterior cortex retropulsion. 2. Inferior T4 and T6 and superior T8 endplate contusions. 3. No hematoma within the spinal canal or evidence of spinal cord injury." Reviewed lumbar MRI dates 04/28/16: Report is as follows.... "IMPRESSION: 1. Subacute L1 compression fracture with mild anterior vertebral body height loss and superior endplate concavity. No associated posterior cortex retropulsion. 2. L2 superior endplate contusion without definite fracture. 3. No evidence ligamentous injury or hematoma within the spinal canal. 4. Mild L4-5 degenerative disc disease with disc bulge causing mild spinal canal stenosis." Consult Discharge Plan - Plan Referrals: Mark Mauro [Primary Care Provider] -
[2016-04-29 12:24] LABS: BUN/Creatinine Ratio 17 (6-26); Blood Urea Nitrogen 11 mg/dL (7-20); Calcium 7.9 mg/dL (8.6-10.8); Carbon Dioxide 28 mEq/L (19-29); Chloride 105 mEq/L (98-109); Glucose 149 mg/dL (70-99); Osmolality,Calculated 296 (280-300); Potassium 3.2 mEq/L (3.5-4.5); Sodium 142 mEq/L (136-145); eGFR For African Americans > 60 (> 60); eGFR For Non-African Americans > 60 (> 60)
[2016-04-29] MEDS ORDERED: Potassium Chloride 20 MEQ, Lidocaine 1% 2 ML in D5% in Water 250 ML IVPB ONE (14:46)
[2016-04-29] MEDS ORDERED: *HR* Morphine 2 MG/ML SYRINGE IVP PRN (14:48)
[2016-04-29 16:58] LABS: Bilirubin,Urine Negative (Negative); Blood,Urine Trace (Negative); Clarity,Urine Clear (Clear); Color,Urine Yellow (Yellow); Glucose,Urine (UA) Normal (Normal); Ketones,Urine Negative (Negative); Leukocyte Esterase,Urine Negative (Negative); Nitrite,Urine Negative (Negative); PH,Urine 6.5 pH Units (5.0-8.0); Protein,Urine 30 mg/dL (Neg-Trace); Specific Gravity,Urine 1.021 (1.010-1.025); Urobilinogen,Urine Normal (Normal)
[2016-04-29 17:00] LABS: Bacteria,Urine None Seen per hpf (None-Few); Hyaline Casts,Urine None Seen per lpf (None-Few); RBC,Urine 15-30 per hpf (0-3); Squamous Epithelial Cell,Urine Many per lpf (None-Few)
[2016-04-29 17:03] LABS: Amphetamine Screen,Urine Negative ng/mL (Cutoff=1000); Barbiturate Screen,Urine Negative ng/mL (Cutoff=200); Benzodiazepines Screen,Urine Negative ng/mL (Cutoff=200); Cannabinoid Screen,Urine Negative ng/mL (Cutoff = 50); Cocaine Screen,Urine Negative ng/mL (Cutoff= 300); Opiate Screen,Urine Negative ng/mL (Cutoff=300); Phencyclidine Screen,Urine Negative ng/mL (Cutoff=25)
[2016-04-29] MEDS: Acetaminophen 325 MG TABLET PO PRN (17:29)
[2016-04-29] MEDS ORDERED: *HR* OxyCODONE Immed Rel 5 MG TABLET PO SCH (21:00)
[2016-04-30] MEDS: 0.9 % Sodium Chloride 1,000 ML IVC SCH ×3 (00:22→15:46)
[2016-04-30 05:40] LABS: Basophils % 0.2 %; Eosinophils % 0.6 %; Hematocrit 30.1 % (35.3-44.9); Hemoglobin 9.3 g/dL (11.5-15.4); Immature Granulocytes % 0.6 % (0-4); Lymphocytes # 1.5 K/mcL (0.6-4.6); Mean Corpuscular HGB Conc 30.9 g/dL (31.6-35.5); Mean Corpuscular Hemoglobin 32.5 pg (28.0-33.3); Mean Corpuscular Volume 105.2 fL (83.0-100.0); Mean Platelet Volume 10.2 fL (9.4-12.4); Monocytes # 0.3 K/mcL (0.0-1.3); Monocytes % 4.3 %; Neutrophils # 4.4 K/mcL (1.6-8.9); Nucleated Red Blood Cells 0.3 /100 WBC (0); Platelet Count 154 K/mcL (140-400); Red Blood Count 2.86 M/mcL (3.82-4.97); Red Cell Distribution Width 13.6 % (11.5-14.5); Segmented Neutrophils % 70.3 %
[2016-04-30 05:47] LABS: Ionized Calcium 1.18 mmol/L (1.15-1.35)
[2016-04-30 05:53] LABS: Magnesium 1.5 mg/dL (1.6-2.6); Phosphorous 2.2 mg/dL (2.3-4.7)
[2016-04-30] MEDS: *HR* Heparin 5,000 UNIT/ML VIAL SQ SCH ×3 (06:14→22:21)
[2016-04-30] MEDS: Famotidine 20 MG/2 ML VIAL IVP SCH ×2 (06:15→17:05)
[2016-04-30 06:32] LABS: Vitamin B12 > 2000 pg/mL (213-816)
--- NOTE | 2016-04-30 08:23 | Internal Med Progress Note ---
<MarioClayton toro - Last Filed: 04/30/16 15:18> Date of Encounter: 04/30/16 Time of Encounter: 08:19 - Assessment and plan (1) Vertebral compression fracture Current Visit: Yes Status: Acute Assessment and plan: Patient presenting with worsening back pain. Known fall 3 weeks ago and dx of T7 compression Fracture. Patient does not remember if she fell again at home or had any traumatic injury. 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 Denies saddle anesthesia. On exam muscle strength decreased b/l hip abduction possibly secondary to pain vs spinal canal narrowing. Reflexes 2-3/4 right Achilles, 2/4 L achilles and bilateral patellar. Sensation intact b/l upper and lower extremity. MRI today T/L spine showing acute vs subacute t5 and t7 compression fracture, contusions to T4,T6,T8 , L2, subacute L1 compression fx, and degenerative changes lumbar spine L4-5 with disc bulge and mild canal narrowing. Pain management has seen the patient and has not recommended surgery at this time. Patient found to have low calcium, Vitamin D levels were 8 B12 elevated, likely due to inflammation. Folate, TSH, PTH within normal limits. Plan: -NO surgery at this time. COntinue with bed rest. -TSLO brace -PT/OT consulted -Resumed patient's home dose of oxycodone PRN, with Morphine IV for severe pain. 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 -Will review OARRS -C spine MRI pending. -iron profile pending with morning labs. -COnsult to PT/OT. Qualifiers: Encounter type: initial encounter Qualified Code(s): M48.50XA - Collapsed vertebra, not elsewhere classified, site unspecified, initial encounter for fracture (2) Hypokalemia Current Visit: Yes Status: Acute Assessment and plan: potassium upon admission was 2.4 Have replaced, will re check tomorrow along with magnesium levels. (3) Pneumonia Current Visit: Yes Status: Acute Assessment and plan: CXR showed increased opacities in the central left lung. Continue Levaquin, Day 2 DuoNeb PRN Qualifiers: Pneumonia type: due to unspecified organism Laterality: unspecified laterality Lung location: unspecified part of lung Qualified Code(s): J18.9 - Pneumonia, unspecified organism (4) Hypertension Current Visit: Yes Status: Acute Assessment and plan: blood pressure well controlled at this time. resumed home dose Norvasc. Qualifiers: Hypertension type: essential hypertension Qualified Code(s): I10 - Essential (primary) hypertension (5) Multiple falls Current Visit: Yes Status: Acute Assessment and plan: Patient states that she feels safe at home. She denies any sort of abusive relationship with her . Etiology likely secondary to osteoporosis. plan: PT/OT fall precautions continue with vitamin D and calcium supplementation TSLO brace. (6) Decreased responsiveness Current Visit: Yes Status: Acute Assessment and plan: Upon admission, patient was hard to arouse after receiving ativan and dilaudid. SHe received Narcan with minimal improvement. Head CT showed no acute intracranial abnormality. ABG showed normal pH, elevated CO2. 04/30: Patient is alert and oriented x3, mentation is normal. however, patient does state she is in a lot of severe pain. Overnight, nurses state that patient was very drowsy and got one dose of her home dose oxycodone. Plan: COntinue to monitor. Resumed home dose of oxycodone PRN, IV morphine is resumed for now, but will be held if patient continues to be drowsy. (7) Hirschsprung's disease Current Visit: Yes Status: Acute (8) DVT prophylaxis Current Visit: Yes Status: Acute Assessment and plan: Heparin SQ - Subjective Interval history: 45 year-old female examined at bedside. Patient denies nausea, vomiting. She states she has not had a bowel movement today. Per nursing staff, patient was continuously drowsy last night and only was given a one time dose of her oxycodone because of this. - Constitutional Vitals: Temp Pulse Resp BP Pulse Ox 98 F 68 16 114/68 98 04/30/16 06:37 04/30/16 06:37 04/30/16 06:37 04/30/16 06:37 04/30/16 06:37 General appearance: Present: mild distress, A&O X 3, obese, answers questions appropriately - Head Head exam: Present: atraumatic, normocephalic - ENT ENT exam: Present: mucous membranes moist - Neck Neck exam general surgery: Present: supple, trachea midline - Respiratory Respiratory exam: Present: CTAB - Cardiovascular Cardiovascular exam: Present: RRR, +S1, +S2 - GI/Abdominal GI/Abdominal exam: Present: normal bowel sounds, soft. Absent: tenderness - Extremities Exam Extremities exam: Absent: cyanotic, pedal edema Additional comments: lower extremity excoriations present. patient states these are due to shaving. - Back Exam Additional comments: patient is severely kyphotic. - Neurological Exam Neurological exam: Present: alert, oriented X3, no focal deficits - Skin Skin exam: Absent: cyanosis Internal Medicine: Result - Labs CBC & Chem 7: 04/30/16 04:58 04/30/16 04:58 Labs: Short CBC 04/30/16 Range/Units 04:58 WBC 6.3 (4.3-11.1) K/mcL Hgb 9.3 L (11.5-15.4) g/dL Hct 30.1 L (35.3-44.9) % Plt Count 154 (140-400) K/mcL Neutrophils # 4.4 (1.6-8.9) K/mcL BMP 04/29/16 11:14 Sodium 142 Potassium 3.2 L Chloride 105 Carbon Dioxide 28 BUN 11 Creatinine 0.66 Glucose 149 H Calcium 7.9 L Urine 04/29/16 Range/Units 16:54 Urine Color Yellow (Yellow) Urine Clarity Clear (Clear) Urine pH 6.5 (5.0-8.0) pH Units Ur Specific [place] 1.021 (1.010-1.025) Urine Protein 30 H (Neg-Trace) mg/dL Urine Glucose (UA) Normal (Normal) mg/dL - ABG Interpretation ABG results: ABG ABG pH 7.36 pH Units (7.32-7.45) 04/29/16 00:46 ABG pCO2 67 mmHg (35-45) H 04/29/16 00:46 ABG pO2 103 mmHg (85-104) 04/29/16 00:46 ABG O2 Saturation 98 % (95-98) 04/29/16 00:46 Consult Discharge Plan - Plan Referrals: Mark Mauro [Primary Care Provider] - <Jono Martinez T - Last Filed: 04/30/16 16:54> - Constitutional Vitals: Temp Pulse Resp BP Pulse Ox 98.1 F 72 16 122/73 95 04/30/16 15:29 04/30/16 15:29 04/30/16 15:29 04/30/16 15:29 04/30/16 15:29 Internal Medicine: Result - Labs CBC & Chem 7: 04/30/16 04:58 04/30/16 04:58 Labs: Short CBC 04/30/16 Range/Units 04:58 WBC 6.3 (4.3-11.1) K/mcL Hgb 9.3 L (11.5-15.4) g/dL Hct 30.1 L (35.3-44.9) % Plt Count 154 (140-400) K/mcL Neutrophils # 4.4 (1.6-8.9) K/mcL BMP 04/30/16 04:58 Sodium 140 Potassium 3.5 Chloride 106 Carbon Dioxide 27 BUN 12 Creatinine 0.64 Glucose 69 L Calcium 8.5 L Urine 04/29/16 Range/Units 16:54 Urine Color Yellow (Yellow) Urine Clarity Clear (Clear) Urine pH 6.5 (5.0-8.0) pH Units Ur Specific [place] 1.021 (1.010-1.025) Urine Protein 30 H (Neg-Trace) mg/dL Urine Glucose (UA) Normal (Normal) mg/dL - ABG Interpretation ABG results: ABG ABG pH 7.36 pH Units (7.32-7.45) 04/29/16 00:46 ABG pCO2 67 mmHg (35-45) H 04/29/16 00:46 ABG pO2 103 mmHg (85-104) 04/29/16 00:46 ABG O2 Saturation 98 % (95-98) 04/29/16 00:46 - Attending Attestation I examined this patient and my medical decision-making was reviewed with the RECEIVER DISPATCHER/PA/Advanced Practice Nurse/Resident Physician. I agree with the documented findings, disposition and treatment plan as described except to the extent set forth below Seen at bedside , awake, alert, able to participate in conversation 45 year old female with PMH including hypertension, Hirshsprung's Disease, and current tobacco use She is being managed for acute on chronic back pain secondary to multiple spnal compression fractures due to recurrent falls, probable osteoporosis, vitamin D deficiency and pneumonia She refused her C-spine MRI yesterday and today She denies new complains Utox done showed no opiates in the urine despite OARSS showing regular prescription for opiates. Vit D is 8, Po4 and Mag are low today, worse macrocytic anemia, PTH negative K has normalized PT/OT eval noted, patient is for SNF Continue pain meds, monitor closely Continue Levaquin for PNA and O2 supplementation. Patient is high risk due to waxing and waning mental status and use of IV opiates
[2016-04-30] MEDS ORDERED: Magnesium Sulfate 2 GM in D5% in Water 100 ML IVPB ONE (08:35)
[2016-04-30 08:49] LABS: BUN/Creatinine Ratio 19 (6-26); Blood Urea Nitrogen 12 mg/dL (7-20); Calcium 8.5 mg/dL (8.6-10.8); Carbon Dioxide 27 mEq/L (19-29); Chloride 106 mEq/L (98-109); Glucose 69 mg/dL (70-99); Osmolality,Calculated 288 (280-300); Potassium 3.5 mEq/L (3.5-4.5); Sodium 140 mEq/L (136-145); eGFR For African Americans > 60 (> 60); eGFR For Non-African Americans > 60 (> 60)
[2016-04-30] MEDS: amLODIPine 5 MG TABLET PO SCH ×2 (10:04→10:15)
[2016-04-30] MEDS: Cholecalciferol (D-3) 1,000 UNIT TABLET PO SCH ×2 (10:04→10:16)
[2016-04-30] MEDS: Sennosides/Docusate Sodium TABLET PO SCH ×2 (10:04→10:16)
[2016-04-30] MEDS: Levofloxacin 750 MG/150 ML 750 MG/150 ML BAG IVPB SCH (10:04)
[2016-04-30] MEDS ORDERED: *HR* LORazepam 2 MG/ML VIAL IVP ONE (14:57)
[2016-04-30] MEDS: Ondansetron 4 MG/2 ML VIAL IVP PRN (15:26)
[2016-04-30] MEDS: *HR* Morphine 2 MG/ML SYRINGE IVP PRN ×2 (15:53→22:20)
[2016-04-30] MEDS: *HR* OxyCODONE Immed Rel 5 MG TABLET PO PRN ×2 (17:04→21:06)
[2016-04-30] MEDS: Acetaminophen 325 MG TABLET PO PRN (20:26)
[2016-05-01] MEDS: *HR* OxyCODONE Immed Rel 5 MG TABLET PO PRN ×5 (01:08→22:23)
[2016-05-01] MEDS: 0.9 % Sodium Chloride 1,000 ML IVC SCH (01:09)
[2016-05-01] MEDS: *HR* Morphine 2 MG/ML SYRINGE IVP PRN ×3 (04:24→16:57)
[2016-05-01 04:46] LABS: Basophils % 0.2 %; Eosinophils # 0.1 K/mcL (0.0-0.6); Eosinophils % 1.1 %; Hematocrit 27.3 % (35.3-44.9); Hemoglobin 8.9 g/dL (11.5-15.4); Immature Granulocytes % 0.7 % (0-4); Lymphocytes % 21.9 %; Mean Corpuscular HGB Conc 32.6 g/dL (31.6-35.5); Mean Corpuscular Hemoglobin 32.7 pg (28.0-33.3); Mean Corpuscular Volume 100.4 fL (83.0-100.0); Mean Platelet Volume 9.5 fL (9.4-12.4); Monocytes # 0.2 K/mcL (0.0-1.3); Monocytes % 4.6 %; Neutrophils # 3.3 K/mcL (1.6-8.9); Nucleated Red Blood Cells 0.4 /100 WBC (0); Platelet Count 143 K/mcL (140-400); Red Blood Count 2.72 M/mcL (3.82-4.97); Red Cell Distribution Width 13.2 % (11.5-14.5); Segmented Neutrophils % 71.5 %
[2016-05-01 04:59] LABS: BUN/Creatinine Ratio 14 (6-26); Blood Urea Nitrogen 8 mg/dL (7-20); Calcium 7.8 mg/dL (8.6-10.8); Carbon Dioxide 26 mEq/L (19-29); Chloride 104 mEq/L (98-109); Glucose 68 mg/dL (70-99); Magnesium 1.6 mg/dL (1.6-2.6); Osmolality,Calculated 285 (280-300); Phosphorous 1.9 mg/dL (2.3-4.7); Potassium 3.5 mEq/L (3.5-4.5); Sodium 139 mEq/L (136-145); eGFR For African Americans > 60 (> 60); eGFR For Non-African Americans > 60 (> 60)
[2016-05-01 05:00] LABS: Ionized Calcium 1.08 mmol/L (1.15-1.35)
[2016-05-01] MEDS: Famotidine 20 MG/2 ML VIAL IVP SCH (05:16)
[2016-05-01] MEDS: *HR* Heparin 5,000 UNIT/ML VIAL SQ SCH ×3 (05:16→22:22)
[2016-05-01 05:18] LABS: % Iron Saturation 14 % (15-50); Iron 47 mcg/dL (50-170); Transferrin 238 mg/dL (180-382)
[2016-05-01] MEDS: Levofloxacin 750 MG/150 ML 750 MG/150 ML BAG IVPB SCH (08:05)
[2016-05-01] MEDS: amLODIPine 5 MG TABLET PO SCH (08:05)
[2016-05-01] MEDS: Sennosides/Docusate Sodium TABLET PO SCH (08:05)
[2016-05-01] MEDS ORDERED: Calcium Gluconate 2,000 MG in D5% in Water 100 ML IVPB ONE (08:34)
--- NOTE | 2016-05-01 14:24 | Internal Med Progress Note ---
<Clayton Infante - Last Filed: 05/01/16 14:21> Date of Encounter: 05/01/16 Time of Encounter: 09:30 - Assessment and plan (1) Vertebral compression fracture Current Visit: Yes Status: Acute Assessment and plan: Patient presenting with worsening back pain. Known fall 3 weeks ago and dx of T7 compression Fracture. Patient does not remember if she fell again at home or had any traumatic injury. 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 Denies saddle anesthesia. On exam muscle strength decreased b/l hip abduction possibly secondary to pain vs spinal canal narrowing. Reflexes 2-3/4 right Achilles, 2/4 L achilles and bilateral patellar. Sensation intact b/l upper and lower extremity. MRI today T/L spine showing acute vs subacute t5 and t7 compression fracture, contusions to T4,T6,T8 , L2, subacute L1 compression fx, and degenerative changes lumbar spine L4-5 with disc bulge and mild canal narrowing. Pain management has seen the patient and has not recommended surgery at this time. Patient found to have low calcium, Vitamin D levels were 8 B12 elevated, likely due to inflammation. Folate, TSH, PTH within normal limits. Plan: -NO surgery at this time. COntinue with bed rest. -RIC brace -PT/OT consulted -Resumed patient's home dose of oxycodone PRN, with Morphine IV for severe pain. Patient still contineus to complain of pain, but will keep pain meds as is due to her severe drowsyness. 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 -OARRS report confirms that patient has one prescriber for her pain medications. -patient refused C spine MRI -low iron- supplementing with ferrous sulfate BID. -PT/OT. -Discharge planning pending. Referral made to [place] [facility]. Qualifiers: Encounter type: initial encounter Qualified Code(s): M48.50XA - Collapsed vertebra, not elsewhere classified, site unspecified, initial encounter for fracture (2) Hypokalemia Current Visit: Yes Status: Acute Assessment and plan: Resolved. (3) Pneumonia Current Visit: Yes Status: Acute Assessment and plan: CXR showed increased opacities in the central left lung. Continue Levaquin, Day 3 DuoNeb PRN Qualifiers: Pneumonia type: due to unspecified organism Laterality: unspecified laterality Lung location: unspecified part of lung Qualified Code(s): J18.9 - Pneumonia, unspecified organism (4) Hypertension Current Visit: Yes Status: Acute Assessment and plan: blood pressure well controlled at this time. resumed home dose Norvasc. Qualifiers: Hypertension type: essential hypertension Qualified Code(s): I10 - Essential (primary) hypertension (5) Multiple falls Current Visit: Yes Status: Acute Assessment and plan: Patient states that she feels safe at home. She denies any sort of abusive relationship with her . Etiology likely secondary to osteoporosis. plan: PT/OT fall precautions continue with vitamin D and calcium supplementation TSLO brace. (6) Decreased responsiveness Current Visit: Yes Status: Acute Assessment and plan: Upon admission, patient was hard to arouse after receiving ativan and dilaudid. SHe received Narcan with minimal improvement. Head CT showed no acute intracranial abnormality. ABG showed normal pH, elevated CO2. 04/30: Patient is alert and oriented x3, mentation is normal. however, patient does state she is in a lot of severe pain. Overnight, nurses state that patient was very drowsy and got one dose of her home dose oxycodone. 05/01: Patient still complains of severe pain, but gets very drowsy with IV Morphine. For now will keep her pain meds as is. (7) Hirschsprung's disease Current Visit: Yes Status: Acute (8) DVT prophylaxis Current Visit: Yes Status: Acute Assessment and plan: Heparin SQ - Subjective Interval history: 45 year-old female examined at bedside. Patient denies nausea, vomiting. She states she has not had a bowel movement today. Per nursing staff, patient was continuously drowsy last night and only was given a one time dose of her oxycodone because of this. - Constitutional Vitals: Temp Pulse Resp BP Pulse Ox 98.4 F 82 16 131/81 93 L 05/01/16 11:26 05/01/16 11:26 05/01/16 11:26 05/01/16 11:26 05/01/16 11:26 General appearance: Present: A&O X 3, obese, severe distress (patient is in severe distress from back pain. ), answers questions appropriately - Head Head exam: Present: atraumatic, normocephalic - Neck Neck exam general surgery: Present: supple, trachea midline - Respiratory Respiratory exam: Present: wheezes - Cardiovascular Cardiovascular exam: Present: RRR - GI/Abdominal GI/Abdominal exam: Present: normal bowel sounds, soft, tenderness - Extremities Exam Extremities exam: Absent: cyanotic, pedal edema - Back Exam Additional comments: patient is severely kyphotic. - Neurological Exam Neurological exam: Present: alert, oriented X3 - Psychiatric Psychiatric exam: Present: anxious Internal Medicine: Result - Labs CBC & Chem 7: 05/01/16 04:35 05/01/16 04:35 Labs: Short CBC 05/01/16 Range/Units 04:35 WBC 4.6 (4.3-11.1) K/mcL Hgb 8.9 L (11.5-15.4) g/dL Hct 27.3 L (35.3-44.9) % Plt Count 143 (140-400) K/mcL Neutrophils # 3.3 (1.6-8.9) K/mcL BMP 05/01/16 04:35 Sodium 139 Potassium 3.5 Chloride 104 Carbon Dioxide 26 BUN 8 Creatinine 0.57 Glucose 68 L Calcium 7.8 L - ABG Interpretation ABG results: ABG ABG pH 7.36 pH Units (7.32-7.45) 04/29/16 00:46 ABG pCO2 67 mmHg (35-45) H 04/29/16 00:46 ABG pO2 103 mmHg (85-104) 04/29/16 00:46 ABG O2 Saturation 98 % (95-98) 04/29/16 00:46 Consult Discharge Plan - Plan Referrals: Mark Mauro [Primary Care Provider] - <Jono Martinez - Last Filed: 05/01/16 16:27> - Constitutional Vitals: Temp Pulse Resp BP Pulse Ox 98.1 F 72 16 130/78 97 05/01/16 14:58 05/01/16 14:58 05/01/16 14:58 05/01/16 14:58 05/01/16 14:58 Internal Medicine: Result - Labs CBC & Chem 7: 05/01/16 04:35 05/01/16 04:35 Labs: Short CBC 05/01/16 Range/Units 04:35 WBC 4.6 (4.3-11.1) K/mcL Hgb 8.9 L (11.5-15.4) g/dL Hct 27.3 L (35.3-44.9) % Plt Count 143 (140-400) K/mcL Neutrophils # 3.3 (1.6-8.9) K/mcL BMP 05/01/16 04:35 Sodium 139 Potassium 3.5 Chloride 104 Carbon Dioxide 26 BUN 8 Creatinine 0.57 Glucose 68 L Calcium 7.8 L - ABG Interpretation ABG results: ABG ABG pH 7.36 pH Units (7.32-7.45) 04/29/16 00:46 ABG pCO2 67 mmHg (35-45) H 04/29/16 00:46 ABG pO2 103 mmHg (85-104) 04/29/16 00:46 ABG O2 Saturation 98 % (95-98) 04/29/16 00:46 - Attending Attestation I examined this patient and my medical decision-making was reviewed with the SPECIAL EDUCATION CURRICULUM SPECIALIST/PA/Advanced Practice Nurse/Resident Physician. I agree with the documented findings, disposition and treatment plan as described except to the extent set forth below Seen at bedside , awake, alert, able to participate in conversation 45 year old female with PMH including hypertension, Hirshsprung's Disease, and current tobacco use She is being managed for acute on chronic back pain secondary to multiple spnal compression fractures due to recurrent falls, probable osteoporosis, vitamin D deficiency and pneumonia She refused her C-spine MRI She is seen at bedside, her O2 requirement has improved and she is only complaining of pain She is otherwise stable Physical exam -VSS, Chest with FRANK rhonchi, other exam patient refused due to pain labs today notable for iron deficiency anemia, and hypophosphatemia PT/OT eval noted, patient is for SNF Continue pain meds, monitor closely Continue Levaquin for PNA and O2 supplementation. Patient is high risk due use of IV opiates
[2016-05-01] MEDS ORDERED: *HR* Morphine 2 MG/ML SYRINGE IVP ONE (18:42)
[2016-05-01] MEDS: Famotidine 20 MG TABLET PO SCH (22:23)
[2016-05-01] MEDS: Gabapentin 300 MG CAPSULE PO SCH (22:23)
[2016-05-02 05:36] LABS: Basophils % 0.2 %; Eosinophils % 0.7 %; Hematocrit 29.5 % (35.3-44.9); Hemoglobin 9.9 g/dL (11.5-15.4); Immature Granulocytes % 1.3 % (0-4); Lymphocytes # 1.1 K/mcL (0.6-4.6); Lymphocytes % 19.1 %; Mean Corpuscular HGB Conc 33.6 g/dL (31.6-35.5); Mean Corpuscular Hemoglobin 32.6 pg (28.0-33.3); Mean Platelet Volume 9.7 fL (9.4-12.4); Monocytes # 0.3 K/mcL (0.0-1.3); Monocytes % 5.6 %; Neutrophils # 4.1 K/mcL (1.6-8.9); Nucleated Red Blood Cells 0.4 /100 WBC (0); Platelet Count 170 K/mcL (140-400); Red Blood Count 3.04 M/mcL (3.82-4.97); Red Cell Distribution Width 13.3 % (11.5-14.5); Segmented Neutrophils % 73.1 %
[2016-05-02] MEDS: *HR* Heparin 5,000 UNIT/ML VIAL SQ SCH ×3 (05:50→20:04)
[2016-05-02] MEDS: *HR* OxyCODONE Immed Rel 5 MG TABLET PO PRN ×3 (05:51→23:05)
[2016-05-02 05:52] LABS: BUN/Creatinine Ratio 13 (6-26); Blood Urea Nitrogen 8 mg/dL (7-20); Carbon Dioxide 27 mEq/L (19-29); Chloride 97 mEq/L (98-109); Glucose 77 mg/dL (70-99); Magnesium 1.8 mg/dL (1.6-2.6); Osmolality,Calculated 277 (280-300); Phosphorous 2.2 mg/dL (2.3-4.7); Potassium 3.8 mEq/L (3.5-4.5); Sodium 135 mEq/L (136-145); eGFR For African Americans > 60 (> 60); eGFR For Non-African Americans > 60 (> 60)
[2016-05-02 06:00] LABS: Ionized Calcium 1.18 mmol/L (1.15-1.35)
[2016-05-02] MEDS: Sennosides/Docusate Sodium TABLET PO SCH (08:19)
[2016-05-02] MEDS: Acetaminophen 325 MG TABLET PO PRN ×2 (08:19→16:16)
[2016-05-02] MEDS: levoFLOXacin 500 MG TABLET PO SCH (08:19)
[2016-05-02] MEDS: Gabapentin 300 MG CAPSULE PO SCH ×3 (08:19→20:04)
[2016-05-02] MEDS: Famotidine 20 MG TABLET PO SCH ×2 (08:19→20:04)
[2016-05-02] MEDS: amLODIPine 5 MG TABLET PO SCH (08:19)
[2016-05-02] MEDS: Ondansetron 4 MG/2 ML VIAL IVP PRN ×2 (09:41→21:21)
--- NOTE | 2016-05-02 11:10 | Discharge Summary ---
Date of Encounter: 05/02/16 Time of Encounter: 10:55 - Discharge Diagnosis (1) Vertebral compression fracture Priority: Primary Status: Acute Qualifiers: Encounter type: initial encounter Qualified Code(s): M48.50XA - Collapsed vertebra, not elsewhere classified, site unspecified, initial encounter for fracture (2) Decreased responsiveness Priority: Secondary Status: Acute (3) Hirschsprung's disease Priority: Secondary Status: Acute (4) Hypertension Priority: Secondary Status: Acute Qualifiers: Hypertension type: essential hypertension Qualified Code(s): I10 - Essential (primary) hypertension (5) Hypokalemia Priority: Secondary Status: Acute (6) Pneumonia Priority: Secondary Status: Acute Qualifiers: Pneumonia type: due to unspecified organism Laterality: unspecified laterality Lung location: unspecified part of lung Qualified Code(s): J18.9 - Pneumonia, unspecified organism (7) DVT prophylaxis Priority: Secondary Status: Acute - Discharge Medications Prescriptions: Calcium Carbonate [Tums] 1,000 mg PO TID #90 tab.chew Ergocalciferol (VITAMIN D2) [Drisdol (50,000 Unit)] 50,000 unit PO QWEEK #7 capsule Ferrous Sulfate 325 mg PO BIDWM #60 tablet Gabapentin [Neurontin] 600 mg PO TID #60 capsule Levofloxacin [Levaquin] 500 mg PO DAILY #7 tablet Oxycodone HCl 10 mg PO HS #7 tablet Home Medications: Amlodipine [Norvasc] 5 mg PO DAILY 04/29/16 [History] Atenolol [Tenormin] 50 mg PO BID 04/29/16 [History] Cyclobenzaprine [Flexeril] 10 mg PO TID 04/29/16 [History] Ibuprofen 800 mg PO TID 04/29/16 [History] Methadone 25 mg PO TID 04/29/16 [History] Temazepam [Restoril] 30 mg PO HS 04/29/16 [History] Calcium Carbonate [Tums] 1,000 mg PO TID #90 tab.chew 05/02/16 [Rx] Ergocalciferol (VITAMIN D2) [Drisdol (50,000 Unit)] 50,000 unit PO QWEEK #7 capsule 05/02/16 [Rx] Ferrous Sulfate 325 mg PO BIDWM #60 tablet 05/02/16 [Rx] Gabapentin [Neurontin] 600 mg PO TID #60 capsule 05/02/16 [Rx] Levofloxacin [Levaquin] 500 mg PO DAILY #7 tablet 05/02/16 [Rx] Oxycodone HCl 10 mg PO HS #7 tablet 05/02/16 [Rx] Allergies/Adverse Reactions: Allergies azithromycin Allergy (Verified 04/28/16 19:05) Hives celecoxib [From Celebrex] Allergy (Verified 04/28/16 19:05) Hypertension Date of admission: 04/29/16 08:18 Primary care physician: Mark Mauro Consults: 04/29/16 14:29 Consult to Airplane Patrol Pilot [CONS] Routine Reason for SW Consult: Discharge planning Discharging clinician: Cristobal Guerrero Anticipated date of discharge: 05/02/16 - Patient Status Disposition: Transfer Inpatient Rehab Fac Condition: Fair Functional capacity at discharge: bed bound Overall status at discharge: patient is progressing back to baseline - Discharge Instructions Follow Up With: Mark Mauro [Primary Care Provider] - - Diet and Activity Activity: as per physical therapy Diet: low fat, low cholesterol, low salt diet Hospital course: 45 her female presented to the emergency department with back pain. At presentation patient was extremely groggy. Patient fell approximately 1 month ago. At that time she was diagnosed with a T7 compression fracture. She was recommended kyphoplasty but that was denied by insurance. Patient receives methadone daily for her pain as well as oxycodone for pain clinic in [place]. Or support was checked and patient receives her pain medication from one clinic. Patient reported decreased ambulation and stability with associated loss of urine. She also has a history of fecal incontinence secondary to Hirschsprung's disease. MRI of the lumbar spine showed 1) acute-subactue T5 & T7 vertebral body compression fractures with mild anterior vertebral body height loss, 2) inferior T4 &T6 and superior T8 endplate contusions, 3) no hematoma or evidence of spinal cord injury. Lumbar MRI showed 1) subacute L1 compression fracture with mild anterior vertebral body height loss, 2) L2 superior enplate contusion, 3) mild L4-5 DDD with disc buldging causeing mild spinal stenosis, 4) abnormal T1 & T2 and left & right sacral ala changes concerning for acute insufficiency fractures. Patient was given Ativan and Dilaudid before undergoing MRI and afterwards had decreased responsiveness. She was then given Narcan with minimal improvement. CT of the head was negative for any acute changes and ABG was showed PCO2 of 67 which could explain her grogginess. Spine surgeon was consultative for evaluation for surgery. PT OT was consulted. Patient was found to be vitamin D deficient and started on ergocalciferol. She was also started on calcium supplementation. Patient had total abdominal hysterectomy with bilateral salpingo-oophorectomy in her 20s and did not continue her estrogen therapy. This could be a reason why she has most likely osteoporosis. Furthermore patient's x-ray showed increased opacities and central left lung and she was started on Levaquin. During her stay she never had a leukocytosis, remained afebrile, with stable vital signs. Patient's grogginess improved as we controlled her pain medication. She was started on home dose of oxycodone and IV morphine when necessary. Spine surgeon did not recommend surgery at this time and recommended that proper rehabilitation and pain control will help resolve fractures. They recommended a TLSO brace for support. Furthermore they recommended tapering of gabapentin as patient becomes groggy after taking high doses of gabapentin and this could contribute to her history of multiple falls. Patient's gabapentin was decreased from 900 4 times a day to 600 3 times a day. Patient was also found to be iron deficient and started on daily iron. Her B12, folate, TSH, PTH was within normal limits. After getting a complete evaluation from spine surgeon patient is ready for discharge to [facility] for rehabilitation. She will go home on new medications of ergocalciferol, calcium, reduced gabapentin dose, and 7 additional days of Levaquin. Today patient is awake alert 3. Her vitals remained stable. She is on bed rest. She has good oral intake, urine output. Patient should follow the new medicinal changes. - Time Spent with Patient Total time spent providing and/or coordinating discharge services: - Constitutional Vitals: Temp Pulse Resp BP Pulse Ox 98.6 F 70 18 147/89 95 05/02/16 06:44 05/02/16 06:44 05/02/16 06:44 05/02/16 06:44 05/02/16 06:44 General appearance: Present: A&O X 3, obese, severe distress (patient is in severe distress from back pain. ), answers questions appropriately - Head Head exam: Present: atraumatic, normocephalic - Eye Eye exam: Present: PERRL, conjuntiva pink, sclera anicteric - Neck Neck exam general surgery: Present: supple, trachea midline. Absent: lymphadenopathy - Respiratory Respiratory exam: Present: CTAB. Absent: accessory muscle use, rales, rhonchi, wheezes - Cardiovascular Cardiovascular exam: Present: RRR, +S1, +S2. Absent: diastolic murmur, gallop, rubs, systolic murmur - GI/Abdominal GI/Abdominal exam: Present: normal bowel sounds, soft, no peritoneal signs. Absent: distended, tenderness - Extremities Exam Extremities exam: Present: warm, radial pulses palpable and symetrical. Absent : calf tenderness, cyanotic, pedal edema - Back Exam Additional comments: Patient is extremely kyphotic - Neurological Exam Neurological exam: Present: CN II-XII intact, oriented X3, no focal deficits. Absent: pronater drift, facial droop, speech deficit - Psychiatric Psychiatric exam: Present: anxious - Skin Skin exam: Present: dry, intact
--- NOTE | 2016-05-02 11:32 | Physician Discharge Referral ---
[facility] Referral Info Transfer To: [facility] Provider in Charge: Dr. Mason Provider in Charge after Transfer: PCP Institutional Level of Care: Skilled - Diagnosis (1) Vertebral compression fracture Priority: Primary Status: Acute (2) Decreased responsiveness Priority: Secondary Status: Acute (3) Hirschsprung's disease Priority: Secondary Status: Acute (4) Hypertension Priority: Secondary Status: Acute (5) Hypokalemia Priority: Secondary Status: Acute (6) Pneumonia Priority: Secondary Status: Acute (7) DVT prophylaxis Priority: Secondary Status: Acute Prognosis: Fair Aware of Diagnosis: Patient, Family Aware of Prognosis: Patient, Family - Transfer Medications Prescriptions: Calcium Carbonate [Tums] 1,000 mg PO TID #90 tab.chew Ergocalciferol (VITAMIN D2) [Drisdol (50,000 Unit)] 50,000 unit PO QWEEK #7 capsule Ferrous Sulfate 325 mg PO BIDWM #60 tablet Gabapentin [Neurontin] 600 mg PO TID #60 capsule Levofloxacin [Levaquin] 500 mg PO DAILY #7 tablet Oxycodone HCl 10 mg PO HS #7 tablet Home Medications: Amlodipine [Norvasc] 5 mg PO DAILY 04/29/16 [History] Atenolol [Tenormin] 50 mg PO BID 04/29/16 [History] Cyclobenzaprine [Flexeril] 10 mg PO TID 04/29/16 [History] Ibuprofen 800 mg PO TID 04/29/16 [History] Methadone 25 mg PO TID 04/29/16 [History] Temazepam [Restoril] 30 mg PO HS 04/29/16 [History] Calcium Carbonate [Tums] 1,000 mg PO TID #90 tab.chew 05/02/16 [Rx] Ergocalciferol (VITAMIN D2) [Drisdol (50,000 Unit)] 50,000 unit PO QWEEK #7 capsule 05/02/16 [Rx] Ferrous Sulfate 325 mg PO BIDWM #60 tablet 05/02/16 [Rx] Gabapentin [Neurontin] 600 mg PO TID #60 capsule 05/02/16 [Rx] Levofloxacin [Levaquin] 500 mg PO DAILY #7 tablet 05/02/16 [Rx] Oxycodone HCl 10 mg PO HS #7 tablet 05/02/16 [Rx] Allergies/Adverse Reactions: Allergies azithromycin Allergy (Verified 04/28/16 19:05) Hives celecoxib [From Celebrex] Allergy (Verified 04/28/16 19:05) Hypertension - Respiratory Orders Smoking Cessation: Smoking cessation has been advised. For more information, call the [place] Tobacco Quit Line at 1-177-QTHY-NOW. - Ancillary Orders May use pressure relief devices daily prn - Advance Directives Code Status: Full Code - Mobility Orders Bedrest - Rehabiliation Orders Rehab Potential: Fair Rehab Orders: ROM Exercises, Evaluation for Physical Therapy, Evaluation for Occupational Therapy - Diet Orders Regular, Cardiac CERTIFICATION: I certify that the transfer of the above named patient to an Extended Care Facility is necessary for the continuing treatment of the diagnosis listed. The above information is true and accurate reflection of patient's current condition. Confidential - Redisclosure prohibited without a patient's written consent.
[2016-05-02] MEDS: *HR* Morphine 2 MG/ML SYRINGE IVP PRN (20:05)
[2016-05-03] MEDS: *HR* OxyCODONE Immed Rel 5 MG TABLET PO PRN ×2 (04:13→09:24)
[2016-05-03] MEDS: *HR* Heparin 5,000 UNIT/ML VIAL SQ SCH (05:27)
[2016-05-03 06:33] VITALS: BP 136/88
--- NOTE | 2016-05-03 08:02 | Event Note ---
<Cristobal Guerrero - Last Filed: 05/03/16 08:00> Date of Encounter: 05/03/16 Time of Encounter: 08:00 She had no overnight issues. Patient will be d/c to [facility] today for inpatient rehabilitation. Pain medication changed from roxicodone 10mg qHS to 10mg Q6H PRN. IV morphine d/ c. <Jono Martinez - Last Filed: 05/03/16 11:47> Patient's discharge was not done yesterday due to some technical issues She is seen at bedside, no new complains, stable for discharge with adequate po meds
[2016-05-03] MEDS: Famotidine 20 MG TABLET PO SCH (09:24)
[2016-05-03] MEDS: levoFLOXacin 500 MG TABLET PO SCH (09:24)
[2016-05-03] MEDS: Gabapentin 300 MG CAPSULE PO SCH (09:24)
[2016-05-03] MEDS: amLODIPine 5 MG TABLET PO SCH (09:24)
[2016-05-03] MEDS: Sennosides/Docusate Sodium TABLET PO SCH (09:24)
== END 2016-05-03 11:40 | DRG 559 ==
LOC: EMEROO 14:07 → 3NENU 14:07 → SUATTDRO 23:14 → 3NENU 23:43
PROVIDERS: ADMIT Internal Medicine; ATTEND Internal Medicine

== ENCOUNTER 2020-07-19 22:49 | Observation (INO) ==
[2020-07-20] MEDS ORDERED: Naloxone 0.4 MG/ML INJ IVP PRN (01:14)
[2020-07-20] MEDS ORDERED: *HR* Heparin 5,000 UNIT/ML VIAL IVP PRN ×2 (01:29)
[2020-07-20] MEDS: Heparin 25,000UNIT/250ML 1/2NS 25,000 UNIT/250 ML IV.SOLN IVC SCH (02:04)
[2020-07-20 02:10] LABS: Basophils % 0.2 %; Hematocrit 39.3 % (35.3-44.9); Hemoglobin 13.1 g/dL (11.5-15.4); Immature Granulocytes % 0.5 % (0-4); Lymphocytes # 0.5 K/mcL (0.6-4.6); Lymphocytes % 8.2 %; Mean Corpuscular HGB Conc 33.3 g/dL (31.6-35.5); Mean Corpuscular Hemoglobin 34.4 pg (28.0-33.3); Mean Corpuscular Volume 103.1 fL (83.0-100.0); Mean Platelet Volume 9.5 fL (9.4-12.4); Monocytes # 0.1 K/mcL (0.0-1.3); Monocytes % 1.8 %; Neutrophils # 5.6 K/mcL (1.6-8.9); Platelet Count 264 K/mcL (140-400); Red Blood Count 3.81 M/mcL (3.82-4.97); Red Cell Distribution Width 12.7 % (11.5-14.5); Segmented Neutrophils % 89.3 %; White Blood Count 6.2 K/mcL (4.3-11.1)
[2020-07-20 02:17] LABS: INR 1.1; Prothrombin Time 13.2 Seconds (9.4-12.1)
[2020-07-20 02:23] LABS: Heparin anti-factor XA UFH 1.01 IU/mL (0.30-0.70)
[2020-07-20 02:25] LABS: BUN/Creatinine Ratio 16 (6-26); Blood Urea Nitrogen 9 mg/dL (6-20); Calcium 8.7 mg/dL (8.6-10.3); Carbon Dioxide 27 mEq/L (23-29); Chloride 104 mEq/L (98-107); Glucose 179 mg/dL (70-105); Osmolality,Calculated 289 (280-300); Potassium 3.8 mEq/L (3.5-5.1); Sodium 138 mEq/L (136-145); eGFR For African Americans > 60 (> 60); eGFR For Non-African Americans > 60 (> 60)
[2020-07-20] MEDS ORDERED: Perflutren Lipid Microsphere 1.3 ML in 0.9 % Sodium Chloride 8.7 ML IVP PRN (05:07)
[2020-07-20] MEDS: Doxycycline 100 MG in 0.9 % Sodium Chloride Mini Bag 100 ML IVPB SCH ×2 (05:39→18:02)
[2020-07-20] MEDS ORDERED: Ipratropium/Albuterol Neb 3 ML IH PRN (07:42)
[2020-07-20] MEDS ORDERED: Morphine Sulfate 2 MG/ML SYRINGE IVP ONE (08:49)
[2020-07-20] MEDS: cefTRIAXone 1,000 MG in Water for inj. (sterile) 10 ML IVP SCH (08:53)
[2020-07-20] MEDS: Ondansetron 4 MG/2 ML VIAL IVP PRN (09:01)
[2020-07-20] MEDS: MethylPREDNISolone 40 MG/ML VIAL IVP SCH ×2 (12:48→20:39)
[2020-07-20] MEDS ORDERED: Morphine Sulfate ER (12 HR) 60 MG TABLET.ER PO SCH (14:30)
[2020-07-20] MEDS: Gabapentin 300 MG CAPSULE PO SCH ×2 (15:24→20:39)
[2020-07-20] MEDS: *HR* OxyCODONE Immed Rel 5 MG TABLET PO PRN (15:24)
[2020-07-20] MEDS: atenoloL 50 MG TABLET PO SCH (20:39)
[2020-07-20] MEDS: Morphine Sulfate ER (12 HR) 60 MG TABLET.ER PO SCH (21:16)
[2020-07-20] MEDS: Budesonide/Formoterol 160/4.5 1 PUFF INH IH SCH (21:36)
[2020-07-21] MEDS: Heparin 25,000UNIT/250ML 1/2NS 25,000 UNIT/250 ML IV.SOLN IVC SCH (01:59)
[2020-07-21 04:28] LABS: Basophils % 0.1 %; Hematocrit 39.4 % (35.3-44.9); Hemoglobin 13.3 g/dL (11.5-15.4); Immature Granulocytes % 0.7 % (0-4); Lymphocytes # 0.7 K/mcL (0.6-4.6); Lymphocytes % 6.3 %; Mean Corpuscular HGB Conc 33.8 g/dL (31.6-35.5); Mean Corpuscular Hemoglobin 34.6 pg (28.0-33.3); Mean Corpuscular Volume 102.6 fL (83.0-100.0); Mean Platelet Volume 9.4 fL (9.4-12.4); Monocytes # 0.2 K/mcL (0.0-1.3); Monocytes % 2.2 %; Neutrophils # 9.4 K/mcL (1.6-8.9); Platelet Count 272 K/mcL (140-400); Red Blood Count 3.84 M/mcL (3.82-4.97); Red Cell Distribution Width 12.7 % (11.5-14.5); Segmented Neutrophils % 90.7 %
[2020-07-21 04:31] LABS: White Blood Count 10.4 K/mcL (4.3-11.1)
[2020-07-21] MEDS: MethylPREDNISolone 40 MG/ML VIAL IVP SCH ×2 (04:33→14:06)
[2020-07-21] MEDS: Doxycycline 100 MG in 0.9 % Sodium Chloride Mini Bag 100 ML IVPB SCH ×2 (04:35→16:42)
[2020-07-21 04:43] LABS: BUN/Creatinine Ratio 23 (6-26); Blood Urea Nitrogen 13 mg/dL (6-20); Calcium 9.6 mg/dL (8.6-10.3); Carbon Dioxide 27 mEq/L (23-29); Chloride 106 mEq/L (98-107); Glucose 140 mg/dL (70-105); Magnesium 1.9 mg/dL (1.6-2.6); Osmolality,Calculated 290 (280-300); Phosphorous 3.3 mg/dL (2.7-4.5); Potassium 4.1 mEq/L (3.5-5.1); Sodium 139 mEq/L (136-145); eGFR For African Americans > 60 (> 60); eGFR For Non-African Americans > 60 (> 60)
[2020-07-21] MEDS: Gabapentin 300 MG CAPSULE PO SCH ×3 (08:04→20:58)
[2020-07-21] MEDS: atenoloL 50 MG TABLET PO SCH ×2 (08:04→20:58)
[2020-07-21] MEDS: cefTRIAXone 1,000 MG in Water for inj. (sterile) 10 ML IVP SCH (08:04)
[2020-07-21] MEDS: Morphine Sulfate ER (12 HR) 60 MG TABLET.ER PO SCH ×2 (08:04→20:58)
[2020-07-21] MEDS: amLODIPine 5 MG TABLET PO SCH (08:04)
[2020-07-21] MEDS: Sennosides/Docusate Sodium TABLET PO SCH (08:04)
[2020-07-21] MEDS: Cholecalciferol (D-3) 1,000 UNIT (25MCG) TABLET PO SCH (08:04)
[2020-07-21] MEDS: Budesonide/Formoterol 160/4.5 1 PUFF INH IH SCH ×2 (10:38→19:56)
[2020-07-21] MEDS: *HR* Enoxaparin 80 MG/0.8 ML SYRINGE SQ SCH ×2 (14:06→21:05)
[2020-07-21] MEDS: Nicotine 14 MG PATCH.TD24 TD SCH (14:07)
[2020-07-21] MEDS: *HR* OxyCODONE Immed Rel 5 MG TABLET PO PRN (14:13)
[2020-07-21] MEDS ORDERED: *HR* Warfarin 5 MG TABLET PO ONE (18:00)
[2020-07-21] MEDS ORDERED: Warfarin perPT PO SCH (18:00)
[2020-07-22] MEDS: Ondansetron 4 MG/2 ML VIAL IVP PRN (00:27)
[2020-07-22] MEDS: *HR* OxyCODONE Immed Rel 5 MG TABLET PO PRN ×2 (00:27→12:35)
[2020-07-22] MEDS: MethylPREDNISolone 40 MG/ML VIAL IVP SCH ×2 (00:28→12:53)
[2020-07-22] MEDS: *HR* Enoxaparin 80 MG/0.8 ML SYRINGE SQ SCH (05:59)
[2020-07-22] MEDS: Doxycycline 100 MG in 0.9 % Sodium Chloride Mini Bag 100 ML IVPB SCH (05:59)
[2020-07-22] MEDS: Cholecalciferol (D-3) 1,000 UNIT (25MCG) TABLET PO SCH (09:30)
[2020-07-22] MEDS: amLODIPine 5 MG TABLET PO SCH (09:30)
[2020-07-22] MEDS: Nicotine 14 MG PATCH.TD24 TD SCH (09:31)
[2020-07-22] MEDS: Morphine Sulfate ER (12 HR) 60 MG TABLET.ER PO SCH (09:31)
[2020-07-22] MEDS: Gabapentin 300 MG CAPSULE PO SCH (09:31)
[2020-07-22] MEDS: Sennosides/Docusate Sodium TABLET PO SCH (09:32)
[2020-07-22] MEDS: atenoloL 50 MG TABLET PO SCH (09:37)
[2020-07-22] MEDS: Budesonide/Formoterol 160/4.5 1 PUFF INH IH SCH (09:57)
[2020-07-22 10:35] LABS: INR 1.2; Prothrombin Time 13.4 Seconds (9.4-12.1)
[2020-07-22 11:13] VITALS: BP 129/82
[2020-07-22] MEDS ORDERED: *HR* Enoxaparin 80 MG/0.8 ML SYRINGE SQ ONE (12:29)
[2020-07-22] MEDS ORDERED: *HR* Warfarin 7.5 MG TABLET PO ONE (12:30)
[2020-07-22] MEDS ORDERED: predniSONE 20 MG TABLET PO ONE (12:31)
[2020-07-22] MEDS ORDERED: *HR* Warfarin 5 MG TABLET PO ONE (18:00)
== END 2020-07-22 14:22 | disposition home or self-care (01) ==
LOC: 2ANU → SUATTDRO 07-20 00:44
PROVIDERS: ADMIT Internal Medicine; ATTEND Internal Medicine